=== PATIENT | male | born 1975 | race American Indian/Alaskan Native ===

== ENCOUNTER 2022-01-18 02:13 | Emergency (ER) | payer SELFPAY ==
[2022-01-18 03:59] LABS: Bilirubin,Urine NEG (Negative); Blood,Urine NEG (Negative); Color,Urine Yellow (Yellow)
[2022-01-18 04:00] LABS: Mucus,Urine FEW /HPF; Urobilinogen,Urine < 2 mg/dL (<2.0)
[2022-01-18] MEDS ORDERED: KETOROLAC 10 MG TAB PO ONE (07:57)
[2022-01-18] MEDS ORDERED: SULFAMETHOXAZOLE/TRIMETHOPRIM 800/160MG DS TAB PO ONE (07:58)
--- NOTE | 2022-01-18 09:04 | Emergency Department Report ---
ED Male HPI - General Chief complaint: Abdominal Pain Stated complaint: LT SIDE PAIN Time Seen by Provider: 01/18/22 07:06 Source: EMS Mode of arrival: Stretcher Limitations: No Limitations - History of Present Illness Initial comments: 46-year-old black male with a past medical history of hypertension, diabetes, and CAD with stents presents to the emergency department for evaluation of 3-day history of dysuria and intermittent left flank pain. He states that pain at its worst is 7 out of 10. He denies fever, abdominal pain, nausea, and vomiting. He states that he has also had some urinary frequency much like he had about a year ago after having a Miller catheter removed. Patient states that he is not sexually active at this time and denies any penile discharge. MD Complaint: dysuria -: Gradual, days(s) (3) Location: left flank Radiation: none Severity: moderate Severity scale (0 -10): 7 Quality: aching Consistency: intermittent Worsens with: urination dysuria. denies: discharge, swelling, mass, rash, urinary retention, blood in urine, fever, nausea/vomiting, incontinence - Related Data Sexually active: No Previous Rx's Medication Instructions Recorded Last Taken Type Sulfamethoxazole/Trimethoprim 1 each PO BID 7 Days #14 tab 01/18/22 Unknown Rx [Bactrim DS TAB] Allergies Allergy/AdvReac Type Severity Reaction Status Date / Time strawberry Allergy Itching Verified 01/18/22 02:29 ED Review of Systems ROS: Stated complaint: LT SIDE PAIN Other details as noted in HPI Comment: All other systems reviewed and negative Constitutional: denies: chills, fever Eyes: denies: vision change Respiratory: denies: shortness of breath Cardiovascular: denies: chest pain, palpitations Gastrointestinal: denies: abdominal pain, nausea, vomiting, diarrhea, hematemesis, melena, hematochezia Genitourinary: dysuria, frequency. denies: urgency, hematuria, discharge, testicular pain, testicular mass Musculoskeletal: denies: back pain Skin: denies: rash, lesions Neurological: denies: headache, weakness Psychiatric: denies: anxiety, depression ED Past Medical Hx - Past Medical History Previous Medical History?: Yes Hx Hypertension: Yes Hx Diabetes: Yes Hx Deep Vein Thrombosis: Yes - Surgical History Past Surgical History?: No - Social History Smoking Status: Unknown if ever smoked - Medications Home Medications: Home Medications Medication Instructions Recorded Confirmed Last Taken Type Sulfamethoxazole/Trimethoprim 1 each PO BID 7 Days #14 tab 01/18/22 Unknown Rx [Bactrim DS TAB] ED Physical Exam - General Limitations: No Limitations General appearance: alert, in no apparent distress - Head Head exam: Present: atraumatic, normocephalic - Eye Eye exam: Present: normal appearance. Absent: conjunctival injection, periorbital swelling, periorbital tenderness - Neck Neck exam: Present: normal inspection, full ROM. Absent: tenderness, lymphadenopathy - Respiratory Respiratory exam: Present: normal lung sounds bilaterally. Absent: respiratory distress, wheezes, rales, rhonchi, stridor, chest wall tenderness - Cardiovascular Cardiovascular Exam: Present: regular rate, normal heart sounds - GI/Abdominal GI/Abdominal exam: Present: soft, normal bowel sounds. Absent: distended, tenderness, guarding, rebound, rigid - Extremities Exam Extremities exam: Present: normal inspection, full ROM, normal capillary refill. Absent: tenderness, pedal edema, calf tenderness - Back Exam Back exam: Present: normal inspection. Absent: CVA tenderness (R), CVA tenderness (L), vertebral tenderness - Neurological Exam Neurological exam: Present: alert, oriented X3, CN II-XII intact, normal gait, reflexes normal. Absent: motor sensory deficit - Psychiatric Psychiatric exam: Present: normal affect, normal mood - Skin Skin exam: Present: warm, dry, intact, normal color ED Course Vital Signs 01/18/22 02:29 Temperature 98.2 F Pulse Rate 94 H Respiratory 18 Rate Blood Pressure 176/130 O2 Sat by Pulse 97 Oximetry ED Medical Decision Making - Medical Decision Making 46-year-old black male with a past medical history of hypertension, diabetes, and CAD with stents presents to the emergency department for evaluation of 3-day history of dysuria and intermittent left flank pain. He states that pain at its worst is 7 out of 10. He denies fever, abdominal pain, nausea, and vomiting. He states that he has also had some urinary frequency much like he had about a year ago after having a Miller catheter removed. Patient states that he is not sexually active at this time and denies any penile discharge. Physical exam unremarkable. Urine positive for urinary tract infection, so patient will be discharged home with 7-day course of Bactrim and advised to follow-up with his primary care provider or urology for further evaluation and management. To the emergency department as needed. He verbalizes understanding of and agreement with plan of care. Critical care attestation.: If time is entered above; I have spent that time in minutes in the direct care of this critically ill patient, excluding procedure time. ED Disposition Clinical Impression: UTI (urinary tract infection) Qualifiers: Urinary tract infection type: acute cystitis Hematuria presence: without hematuria Qualified Code(s): N30.00 - Acute cystitis without hematuria Disposition: HOME / SELF CARE / HOMELESS Is pt being admited?: No Does the pt Need Aspirin: No Condition: Stable Instructions: Urinary Tract Infection, Adult, [id number], Antibiotic Medicine, Adult, [id number] Additional Instructions: And follow-up with your primary care provider or urology for further evaluation and management. Return to the emergency department as Prescriptions: Sulfamethoxazole/Trimethoprim [Bactrim DS TAB] 1 each PO BID 7 Days #14 tab Referrals: PRIMARY MD MARY [Primary Care Provider] - 3-5 Days Time of Disposition: 09:14
[2022-01-18 09:49] VITALS: BP 112/88
== END 2022-01-18 09:49 | disposition home or self-care (01) ==
LOC: EDBD → ED 02:13
DX: N39.0 Urinary tract infection, site not specified (principal); I10 Essential (primary) hypertension; E11.9 Type 2 diabetes mellitus without complications; Z79.899 Other long term (current) drug therapy; Z91.018 Allergy to other foods
CPT/HCPCS: 81001; 87086; 99283